=== PATIENT | female | born 1985 | race Caucasian/White ===

== ENCOUNTER 2019-10-03 15:06 | Emergency (ER) | payer MEDICAID ==
[2019-10-03] MEDS ORDERED: LIDOCAINE 2%-EPI 1:100000 20 ML MDV SUBQ STA (15:42)
--- NOTE | 2019-10-03 15:45 | ED Physician Documentation ---
PD HPI SKIN - Stated complaint Stated Complaint: F - Chief complaint Chief Complaint: Wound - History obtained from History obtained from: Patient (Pleasant 34-year-old female comes in today with chief complaint of an abscess on her right buttocks. She complains at this is been ongoing for 2 to 3 days, she has been warm packing it every couple of hours, having any bloody purulent drainage around. She denies any fevers or chills nausea or vomiting. She has had 2 other abscesses in the last year. The first was treated with antibiotics only, so, was treated I&D and antibiotics. She states of both of these were obtained while she was incarcerated. This is the first when she has had since not being incarcerated. She does not know she has a past medical history of MRSA or not.) Review of Systems Constitutional: reports: Fever. denies: Chills, Fatigue Eyes: reports: Reviewed and negative Ears: reports: Reviewed and negative Nose: reports: Reviewed and negative Throat: reports: Reviewed and negative Cardiac: reports: Reviewed and negative Respiratory: reports: Reviewed and negative GI: reports: Reviewed and negative : reports: Reviewed and negative Skin: reports: Other Musculoskeletal: reports: Reviewed and negative (Abscess to the buttocks) Neurologic: reports: Reviewed and negative PD PAST MEDICAL HISTORY - Present Medications Home Medications: Ambulatory Orders Medication Instructions Recorded Confirmed Chlorhexidine Gluconate [Hibiclens] 236 ml TP ONCE #1 liquid 10/03/19 Mupirocin 22 gm TP BID #1 oint...g. 10/03/19 Sulfamethox/Trimeth 800/160 1 each PO BID #14 tablet 10/03/19 [Bactrim Ds] - Allergies Allergies/Adverse Reactions: Allergies Allergy/AdvReac Type Severity Reaction Status Date / Time No Known Drug Allergies Allergy Verified 10/03/19 15:11 PD ED PE NORMAL - General General: Alert and oriented X 3, No acute distress, Well developed/nourished - HEENT HEENT: Atraumatic, PERRL, EOMI, Moist mucous membranes - Neck Neck: No adenopathy - Cardiac Cardiac: RRR, No murmur - Respiratory Respiratory: No respiratory distress - Abdomen Abdomen: Soft, Non tender - Derm Derm: Normal color, Warm and dry, No rash - Neuro Neuro: Alert and oriented X 3, 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 Results - Vitals Vitals: Vital Signs - 24 hr 10/03/19 15:12 Temperature 36.9 C Heart Rate 108 H Respiratory 14 Rate Blood Pressure 148/99 H O2 Saturation 95 Oxygen O2 Source Room air Procedures - Abscess I&D (location) Buttocks right Lateral Preparation: Chlorhexadine Incision: Incised with scalpel, Purulent drainage, Loculations broken, Ir rigated, Packed, Culture obtained Other: Pt tolerated well, Dressing applied, Antibiotic prescribed PD MEDICAL DECISION MAKING - ED course Complexity details: d/w patient Departure - Departure Disposition: Home, Self Care Clinical Impression: Abscess Condition: Good Instructions: ED Abscess IandD Prescriptions: Chlorhexidine Gluconate [Hibiclens] 236 ml TP ONCE #1 liquid Mupirocin 22 gm TP BID #1 oint...g. Sulfamethox/Trimeth 800/160 [Bactrim Ds] 1 each PO BID #14 tablet Comments: The abscess on her buttocks today was drained. It is a fairly large abscess, we did obtain a culture at the testing for MRSA. I prescribed you an oral antibiotic to take twice daily for 7 days; I have also prescribed you some ointment that you apply to the inside of your each nostril twice a day for 5 days, doing this twice a month. Also have up prescribed you some soap to take a bath with once a week. I would like you to follow-up with your primary care physician to discuss further treatment options to help eradicate MRSA so you start getting abscesses. You to follow-up in the ER, or your primary care physician's office tomorrow, to get the packing changed, you have to come in to get daily packing changes for probably the next 5 to 7 days. You can use ibuprofen and Tylenol for pain control or fever. Keep the dressing dry.
[2019-10-03] MEDS ORDERED: BACITRACIN ZINC OINT 1 PACKET TOP STA (16:17)
[2019-10-03 16:35] VITALS: BP 134/85
== END 2019-10-03 16:36 | disposition home or self-care (01) ==
LOC: ED 15:06
DX: L02.31 Cutaneous abscess of buttock (principal)
CPT/HCPCS: 10061; 87070; 87181; 87205; 99283; 99284; A9270

== ENCOUNTER 2019-10-04 21:10 | Emergency (ER) | payer MEDICAID ==
--- NOTE | 2019-10-04 21:39 | ED Physician Documentation ---
History of Present Illness - Stated complaint Stated Complaint: DRESSING CHANGE - Chief complaint Chief Complaint: Wound - Additonal information Additional information: Patient presents for dressing change of her abscess. She had an abscess on her buttock which was incised and drained yesterday, packing was placed. She was prescribed Bactrim but did not get this filled, so she has not taken any antibiotic since the incision and drainage. She denies any fever, states that her pain is mildly improved from yesterday. 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 10/03/19 Sulfamethox/Trimeth 800/160 1 each PO BID #14 tablet 10/03/19 [Bactrim Ds] Cephalexin [Keflex] 500 mg PO Q6H #28 capsule 10/04/19 - Allergies Allergies/Adverse Reactions: Allergies Allergy/AdvReac Type Severity Reaction Status Date / Time No Known Drug Allergies Allergy Verified 10/04/19 21:18 - Social History Does the pt smoke?: Yes Smoking Status: Current every day smoker - Immunizations Immunizations are current?: No - POLST Patient has POLST: No PD ED PE NORMAL - Vitals Vital signs reviewed: Yes - General General: Alert and oriented X 3, No acute distress - Neck Neck: Supple, no meningeal sign - Cardiac Cardiac: RRR, No murmur - Respiratory Respiratory: No respiratory distress - Abdomen Abdomen: Soft, Non distended - Derm Derm: Other (Over the right buttocks there is a four cm diameter area of erythema and induration at the center of this there is a incisional wound with packing that is removed, with a small amount of purulent drainage.) - Extremities Extremities: No deformity - Neuro Neuro: Alert and oriented X 3 - Psych Psych: Normal mood, Normal affect Results - Vitals Vitals: Vital Signs - 24 hr 03/25/20 03/25/20 21:14 22:22 Temperature 36.8 C 36.9 C Heart Rate 99 77 Respiratory 17 16 Rate Blood Pressure 126/88 H 134/88 H O2 Saturation 100 99 Oxygen O2 Source Room air PD MEDICAL DECISION MAKING - ED course ED course: Patient presents for wound care for an abscess which was incised and drained yesterday. She has not had any fever or signs of worsening infection, overall feels mildly improved from yesterday. The packing was removed and it was repacked. She was not able to start her antibiotics today so we gave her a dose of both Bactrim and Keflex. I reviewed the importance of taking the antibiotic, and proper wound care. We attempted to teach her wound care here, she states that she does not want to try to learn today, but she is open to working with us on it tomorrow. She will return tomorrow for another recheck and repacking. Departure - Departure Disposition: 01 Home, Self Care Clinical Impression: Dressing change Condition: Good Prescriptions: Cephalexin [Keflex] 500 mg PO Q6H #28 capsule Comments: You were seen today for a dressing change on an abscess. Please take the antibiotics as prescribed, and return for wound recheck tomorrow. If you having worsening symptoms such as fever, increasing pain or redness, return sooner. Discharge Date/Time: 10/04/19 22:22
[2019-10-04] MEDS ORDERED: cephALEXin 250 MG CAPSULE PO STA (22:16)
[2019-10-04] MEDS ORDERED: SULFAMETH/TRIMETH DS 800/160 MG TABLET PO STA (22:16)
[2019-10-04 22:23] VITALS: BP 134/88
== END 2019-10-04 22:22 | disposition home or self-care (01) ==
LOC: ED 21:10
DX: Z48.01 Encounter for change or removal of surgical wound dressing (principal)
CPT/HCPCS: 99282; 99284; A9270

== ENCOUNTER 2019-10-06 16:01 | Outpatient (CLI) | payer MEDICAID | END 2019-10-06 16:02 | disposition EMS.NT | LOC: EMS 16:01 | PROVIDERS: ATTEND Surgery | DX: S61.210A Laceration without foreign body of right index finger without damage to nail, initial encounter (principal); S61.212A Laceration without foreign body of right middle finger without damage to nail, initial encounter; X99.9XXA Assault by unspecified sharp object, initial encounter ==

== ENCOUNTER 2019-10-06 19:06 | Emergency (ER) | payer MEDICAID ==
[2019-10-06 19:14] VITALS: BP 117/70
[2019-10-06] MEDS ORDERED: BACITRACIN ZINC OINT 1 PACKET TOP STA (19:34)
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
== END 2019-10-06 20:09 | disposition left against medical advice (07) ==
LOC: ED 19:06
DX: Z48.01 Encounter for change or removal of surgical wound dressing (principal); S61.212A Laceration without foreign body of right middle finger without damage to nail, initial encounter; S61.210A Laceration without foreign body of right index finger without damage to nail, initial encounter; W26.9XXA Contact with unspecified sharp object(s), initial encounter; Y93.89 Activity, other specified; F17.200 Nicotine dependence, unspecified, uncomplicated; Z53.29 Procedure and treatment not carried out because of patient's decision for other reasons
CPT/HCPCS: 99282; A9270

== ENCOUNTER 2020-01-03 15:08 | Emergency (ER) | payer MEDICAID ==
[2020-01-03 15:23] VITALS: BP 119/75
--- NOTE | 2020-01-03 15:31 | ED Physician Documentation ---
PD HPI WOUND RECHECK - Stated complaint Stated Complaint: SORE ON HEAD - Chief complaint Chief Complaint: Wound - Histroy obtained from History obtained from: Patient (34-year-old woman with history of MRSA and psoriasis. She has had a lesion on her scalp that is been slowly getting worse over the last week or so with some drainage. No fevers. 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 10/03/19 Sulfamethox/Trimeth 800/160 1 each PO BID #14 tablet 10/03/19 [Bactrim Ds] Cephalexin [Keflex] 500 mg PO Q6H #28 capsule 10/04/19 Mupirocin 1 gm TP TID #2 oin.pf.cele 01/03/20 Sulfamethoxazole/Trimethoprim 1 each PO BID 7 Days #14 tablet 01/03/20 [Sulfamethoxazole-Tmp Ds Tablet] - Allergies Allergies/Adverse Reactions: Allergies Allergy/AdvReac Type Severity Reaction Status Date / Time No Known Drug Allergies Allergy Verified 01/03/20 15:23 - Social History Does the pt smoke?: Yes Smoking Status: Current every day smoker - Immunizations Immunizations are current?: No - POLST Patient has POLST: No PD ED PE NORMAL - Vitals Vital signs reviewed: Yes - General General: Alert and oriented X 3, No acute distress - HEENT HEENT: PERRL, EOMI, Other (She has a nickel size lesion on the left anterior scalp with just a little bit of a purulent base. No surrounding cellulitis.) - Neuro Neuro: Alert and oriented X 3, Normal speech Results - Vitals Vitals: Vital Signs - 24 hr 01/03/20 15:18 Temperature 96.4 C H Heart Rate 95 Respiratory 14 Rate Blood Pressure 119/75 O2 Saturation 98 Oxygen O2 Source Room air PD MEDICAL DECISION MAKING - ED course ED course: 34-year-old woman with what looks to be a staphylococcal skin infection. She is placed on Bactrim and topical mupirocin. A culture was done. Departure - Departure Disposition: 01 Home, Self Care Clinical Impression: Infection of scalp Condition: Good Record reviewed to determine appropriate education?: Yes Instructions: ED Staph Infec Abx Tx Only Prescriptions: Mupirocin 1 gm TP TID #2 oin.pf.cele Sulfamethoxazole/Trimethoprim [Sulfamethoxazole-Tmp Ds Tablet] 1 each PO BID 7 Days #14 tablet Comments: We are performing a wound culture, the results should be done in 48-72 hours. If antibiotic change is necessary we will call you. Return if worse in the meantime, especially if you develop increased pain, fevers, cannot keep down the medication. Otherwise follow-up with your physician in approximately 2-3 days.
== END 2020-01-03 15:35 | disposition home or self-care (01) ==
LOC: ED 15:08
DX: L08.9 Local infection of the skin and subcutaneous tissue, unspecified (principal); Z86.14 Personal history of Methicillin resistant Staphylococcus aureus infection; F17.200 Nicotine dependence, unspecified, uncomplicated
CPT/HCPCS: 87070; 87181; 87205; 99283